=== PATIENT | male | born 1945 | race Caucasian/White ===

== ENCOUNTER 2018-01-23 09:22 | Inpatient (IN) ==
[2018-01-23 10:05] LABS: Basophils # 0.1 10*3/uL (0.0-0.2); Basophils % 0.8 % (0.0-0.8); Eosinophils # 0.1 10*3/uL (0.0-0.87); Eosinophils % 1.4 % (0.00-10.9); Hemoglobin 14.5 GM/DL (14.0-18.0); Immature Granulocytes % 0.4 %; Immature Granulocytes Absolute 0.03 #; Lymphocytes # 1.2 10*3/uL (1.4-4.0); Lymphocytes % 15.3 % (21.2-54.2); Mean Corpuscular HGB Conc 33.7 GM/DL (32-36); Mean Corpuscular Hemoglobin 31 PG (27-34); Mean Corpuscular Volume 91.3 FL (87-102); Mean Platelet Volume 11.7 FL (9.6-12.0); Monocytes # 0.9 10*3/uL (0.11-0.8); Monocytes % 11.4 % (1.7-12.7); Neutrophils # 5.4 10*3/uL (1.4-7.4); Neutrophils % 70.7 % (38.7-73.9); Platelet Count 150 T/CUMM (130-400); Red Blood Count 4.71 MC/CUMM (3.8-5.5); Red Cell Distribution Width 12.4 % (9.3-17.3); White Blood Count 7.6 T/CUMM (4-12)
[2018-01-23 10:12] LABS: INR 1.1; Partial Thromboplastin Time 25.7 SECS (0-40)
[2018-01-23 10:18] LABS: Albumin 3.8 G/DL (3.4-5.0); Bilirubin,Total 0.9 MG/DL (0.2-1.0); Calcium 8.9 MG/DL (8.5-10.1); Osmolality,Calculated 279.4 MOS/KG (273-304); Potassium 4.4 MMOL/L (3.5-5.1); Total Protein 7.7 G/DL (6.4-8.3)
[2018-01-23] MEDS ORDERED: MORPHINE 4 MG/1 ML VIAL IV STA (10:54)
[2018-01-23] MEDS ORDERED: ALUM/MAG/SIMETH/LIDO VISC 1:1 30 ML BOTTLE PO STA (10:54)
[2018-01-23] MEDS ORDERED: NITROGLYCERIN 2% OINT 1 INCH/GM PACK TOP STA (10:54)
[2018-01-23] MEDS ORDERED: ONDANSETRON 4 MG/2 ML VIAL IV STA (10:54)
[2018-01-23] MEDS ORDERED: METOPROLOL TARTRATE 25 MG TABLET PO STA (10:54)
[2018-01-23] MEDS ORDERED: ENOXAPARIN 100 MG/ML SYRINGE SUBCUT STA (10:55)
[2018-01-23] MEDS ORDERED: ENOXAPARIN 80 MG/0.8 ML SYRINGE SUBCUT ONE (10:59)
[2018-01-23] MEDS ORDERED: MORPHINE 4 MG/1 ML VIAL IV PRN (13:37)
[2018-01-23] MEDS ORDERED: ACETAMINOPHEN 325 MG TABLET PO PRN (13:37)
[2018-01-23] MEDS: SODIUM CHLORIDE 0.9% 1,000 ML IV SCH (14:14)
[2018-01-23] MEDS: NITROGLYCERIN 2% OINT 1 INCH/GM PACK TOP SCH ×2 (14:25→17:04)
[2018-01-23] MEDS ORDERED: SERTRALINE 25 MG TABLET PO ONE (16:50)
[2018-01-23] MEDS: SERTRALINE 25 MG TABLET PO SCH (20:50)
[2018-01-23] MEDS: DOCUSATE SODIUM 100 MG CAPSULE PO SCH (20:53)
[2018-01-23] MEDS: ENOXAPARIN 80 MG/0.8 ML SYRINGE SUBCUT SCH (23:24)
[2018-01-24 05:42] LABS: Albumin 2.7 G/DL (3.4-5.0); Calcium 8.2 MG/DL (8.5-10.1); Osmolality,Calculated 279.3 MOS/KG (273-304); Potassium 3.8 MMOL/L (3.5-5.1); Risk Ratio 2.23; Total Protein 6.1 G/DL (6.4-8.3); VLDL CHOLESTEROL 9.8 MG/DL
[2018-01-24] MEDS: NITROGLYCERIN 2% OINT 1 INCH/GM PACK TOP SCH ×4 (07:17→17:05)
[2018-01-24] MEDS: SODIUM CHLORIDE 0.9% 1,000 ML IV SCH (07:18)
[2018-01-24] MEDS: ONDANSETRON 4 MG/2 ML VIAL IV PRN (08:21)
[2018-01-24 08:30] LABS: Basophils # 0.1 10*3/uL (0.0-0.2); Basophils % 1.2 % (0.0-0.8); Eosinophils # 0.3 10*3/uL (0.0-0.87); Eosinophils % 3.6 % (0.00-10.9); Hematocrit 40.2 VOL% (42.0-52.0); Hemoglobin 13.3 GM/DL (14.0-18.0); Immature Granulocytes % 0.4 %; Immature Granulocytes Absolute 0.03 #; Lymphocytes # 2.1 10*3/uL (1.4-4.0); Lymphocytes % 26.9 % (21.2-54.2); Mean Corpuscular HGB Conc 33.1 GM/DL (32-36); Mean Corpuscular Hemoglobin 30 PG (27-34); Mean Corpuscular Volume 91.4 FL (87-102); Mean Platelet Volume 11.7 FL (9.6-12.0); Monocytes # 0.9 10*3/uL (0.11-0.8); Monocytes % 11.9 % (1.7-12.7); Neutrophils # 4.3 10*3/uL (1.4-7.4); Platelet Count 144 T/CUMM (130-400); Red Cell Distribution Width 12.6 % (9.3-17.3); White Blood Count 7.7 T/CUMM (4-12)
[2018-01-24] MEDS: DOCUSATE SODIUM 100 MG CAPSULE PO SCH ×2 (09:51→21:27)
[2018-01-24] MEDS: ASPIRIN EC 325 MG TABLET PO SCH ×2 (09:51→14:09)
[2018-01-24] MEDS ORDERED: POTASSIUM CHLORIDE RIDER 10 MEQ in PREMIX 1 EACH IV PRN (10:04)
[2018-01-24] MEDS ORDERED: MAGNESIUM SULF RIDER 2 GM in PREMIX 1 EACH IV PRN (10:04)
[2018-01-24] MEDS: PANTOPRAZOLE 40 MG VIAL IV SCH (10:10)
[2018-01-24] MEDS: ENOXAPARIN 80 MG/0.8 ML SYRINGE SUBCUT SCH (10:11)
[2018-01-24] MEDS ORDERED: SODIUM CHLORIDE 0.9% 1,000 ML IV SCH (11:30)
[2018-01-24] MEDS ORDERED: DIAZEPAM 5 MG TABLET PO ONE (13:30)
[2018-01-24] MEDS ORDERED: diphenhydrAMINE CAP 25 MG CAPSULE PO ONE (13:30)
[2018-01-24] MEDS ORDERED: LIDOCAINE 1% 20 ML VIAL ONE (14:47)
[2018-01-24] MEDS ORDERED: MIDAZOLAM 2 MG/2 ML VIAL ONE (14:55)
[2018-01-24] MEDS ORDERED: fentaNYL 100 MCG/2 ML VIAL ONE (14:55)
[2018-01-24] MEDS ORDERED: HEPARIN 5,000 UNIT/1 ML VIAL ONE (15:21)
[2018-01-24] MEDS: amLODIPine 5 MG TABLET PO SCH (16:55)
[2018-01-24] MEDS: ATORVASTATIN 40 MG TABLET PO SCH (21:27)
[2018-01-24] MEDS: SERTRALINE 25 MG TABLET PO SCH (21:27)
[2018-01-25] MEDS: NITROGLYCERIN 2% OINT 1 INCH/GM PACK TOP SCH ×3 (01:53→14:23)
[2018-01-25 04:53] LABS: Basophils # 0.1 10*3/uL (0.0-0.2); Basophils % 0.8 % (0.0-0.8); Eosinophils # 0.3 10*3/uL (0.0-0.87); Eosinophils % 5.3 % (0.00-10.9); Hematocrit 39.6 VOL% (42.0-52.0); Hemoglobin 13.5 GM/DL (14.0-18.0); Immature Granulocytes % 0.3 %; Immature Granulocytes Absolute 0.02 #; Lymphocytes # 1.6 10*3/uL (1.4-4.0); Lymphocytes % 25.8 % (21.2-54.2); Mean Corpuscular HGB Conc 34.1 GM/DL (32-36); Mean Corpuscular Hemoglobin 30 PG (27-34); Mean Platelet Volume 11.8 FL (9.6-12.0); Monocytes # 0.8 10*3/uL (0.11-0.8); Monocytes % 12.3 % (1.7-12.7); Neutrophils # 3.5 10*3/uL (1.4-7.4); Neutrophils % 55.5 % (38.7-73.9); Platelet Count 140 T/CUMM (130-400); Red Blood Count 4.45 MC/CUMM (3.8-5.5); Red Cell Distribution Width 12.5 % (9.3-17.3); White Blood Count 6.3 T/CUMM (4-12)
[2018-01-25 05:12] LABS: Calcium 8.5 MG/DL (8.5-10.1); Osmolality,Calculated 272.7 MOS/KG (273-304); Potassium 3.8 MMOL/L (3.5-5.1)
[2018-01-25] MEDS: ONDANSETRON 4 MG/2 ML VIAL IV PRN (08:32)
[2018-01-25] MEDS ORDERED: NITROGLYCERIN SL 0.4 MG TABLET SL ONE (08:37)
[2018-01-25] MEDS: PANTOPRAZOLE 40 MG VIAL IV SCH (09:57)
[2018-01-25] MEDS: DOCUSATE SODIUM 100 MG CAPSULE PO SCH ×2 (09:57→21:40)
[2018-01-25] MEDS: amLODIPine 5 MG TABLET PO SCH (09:57)
[2018-01-25] MEDS: ASPIRIN EC 325 MG TABLET PO SCH (09:57)
[2018-01-25] MEDS: ENOXAPARIN 80 MG/0.8 ML SYRINGE SUBCUT SCH ×2 (11:05→22:00)
[2018-01-25] MEDS: ATORVASTATIN 40 MG TABLET PO SCH (21:40)
[2018-01-25] MEDS: CARVEDILOL 3.125 MG TABLET PO SCH (21:40)
[2018-01-25] MEDS: SERTRALINE 25 MG TABLET PO SCH (21:40)
[2018-01-26 05:21] LABS: Basophils # 0.1 10*3/uL (0.0-0.2); Eosinophils # 0.5 10*3/uL (0.0-0.87); Eosinophils % 7.4 % (0.00-10.9); Hematocrit 38.1 VOL% (42.0-52.0); Hemoglobin 13.1 GM/DL (14.0-18.0); Immature Granulocytes % 0.2 %; Immature Granulocytes Absolute 0.01 #; Lymphocytes # 1.5 10*3/uL (1.4-4.0); Lymphocytes % 24.6 % (21.2-54.2); Mean Corpuscular HGB Conc 34.4 GM/DL (32-36); Mean Corpuscular Hemoglobin 31 PG (27-34); Mean Corpuscular Volume 88.8 FL (87-102); Mean Platelet Volume 11.3 FL (9.6-12.0); Monocytes # 0.8 10*3/uL (0.11-0.8); Monocytes % 12.5 % (1.7-12.7); Neutrophils # 3.4 10*3/uL (1.4-7.4); Neutrophils % 54.3 % (38.7-73.9); Platelet Count 148 T/CUMM (130-400); Red Blood Count 4.29 MC/CUMM (3.8-5.5); Red Cell Distribution Width 12.7 % (9.3-17.3); White Blood Count 6.3 T/CUMM (4-12)
[2018-01-26 05:52] LABS: Calcium 8.7 MG/DL (8.5-10.1); Osmolality,Calculated 274.8 MOS/KG (273-304); Potassium 3.7 MMOL/L (3.5-5.1)
[2018-01-26] MEDS ORDERED: RIVAROXABAN 15 MG TABLET PO SCH (08:00)
[2018-01-26 08:37] VITALS: BP 107/56
[2018-01-26] MEDS: DOCUSATE SODIUM 100 MG CAPSULE PO SCH (08:53)
[2018-01-26] MEDS: ASPIRIN EC 325 MG TABLET PO SCH (08:53)
[2018-01-26] MEDS: CARVEDILOL 3.125 MG TABLET PO SCH (08:54)
[2018-01-26] MEDS: amLODIPine 5 MG TABLET PO SCH (08:54)
[2018-01-26] MEDS: PANTOPRAZOLE 40 MG VIAL IV SCH (08:54)
[2018-01-26] MEDS ORDERED: ASPIRIN CHEW 81 MG TABLET PO ONE (09:38)
== END 2018-01-26 12:15 | disposition home or self-care (01) | DRG 392 ==
LOC: N.ED 09:22 → N.EDINP 11:48 → N.TELES 13:05
PROVIDERS: ADMIT Family Medicine; ATTEND Family Medicine
PROC: CLCCHCL (ICD-10-PCS; 2018-01-24 15:15)